=== PATIENT | male | born 1955 | race Caucasian/White ===

== ENCOUNTER 2017-10-02 17:54 | Emergency (ER) | payer OTHER ==
[~2017-10-02] VITALS: Ht 182.9 cm; Wt 90.7 kg
== END 2017-10-02 18:38 | disposition home or self-care (01) ==
LOC: ED 17:54
DX: S61.231A Puncture wound without foreign body of left index finger without damage to nail, initial encounter (principal); Y99.8 Other external cause status; I10 Essential (primary) hypertension; M35.3 Polymyalgia rheumatica; W31.0XXA Contact with mining and earth-drilling machinery, initial encounter
CPT/HCPCS: 99282

== ENCOUNTER 2022-03-04 06:37 | Day surgery (SDC) | payer MEDICARE ==
[~2022-03-04] VITALS: Ht 182.9 cm; Wt 90.9 kg
--- NOTE | ~2022-03-04 | OR ---
[facility] [address], [place] [address] Draft DATE OF OPERATION: 03/04/2022 SURGEON: Jose No MD PREOPERATIVE DIAGNOSES: 1. History of polyps ([place], [place]). 2. Family history of colon cancer (mother). POSTOPERATIVE DIAGNOSES: Polyp of mid transverse colon (excised) and sigmoid and left-sided diverticulosis. PROCEDURE: Total colonoscopy to cecum with cold morcellation polypectomy x1. ANESTHESIA: Intravenous sedation; propofol infusion; Joelle Puente CRNA INDICATIONS: This 67-year-old white man has a history of polyps, having undergone colonoscopy on several occasions in [place], [place]. He has now lived in [place] for about seven years. He has family history of colon cancer in his mother who of the disease in her 70s. The patient is currently asymptomatic. He does take bupropion and fluoxetine on a routine basis. On the base of his overall medical situation, propofol infusional sedation is recommended. The risk of bleeding, infection, and perforation related to colonoscopy was reviewed with him. He understands and wished to proceed. FINDINGS: The prep was good overall. Complete colonoscopy was undertaken of the cecum without question. Full intubation of the cecum was accomplished. There was only one small polyp in the mid transverse colon which was excised with cold morcellation technique. Diverticular changes were noted of the sigmoid and left colon and the rectum was normal. DESCRIPTION OF PROCEDURE: The patient was brought to the surgical endoscopy suite and placed in the lateral decubitus position, given intravenous sedation with propofol infusional technique. Full cardiopulmonary monitoring by the mohel. Digital rectal examination showed normal prostate. The Olympus video colonoscope was passed in the rectum and manipulated throughout the colon noting diverticular changes of the sigmoid and left colon. Scope was ultimately advanced to the cecum. Ileocecal valve and appendiceal orifice were normal. The scope was withdrawn from that point and examination throughout showed no PATIENT NAME: MELLISA PERDUE OPERATIVE REPORT DATE OF : 57 REPORT #: [id number] PHYSICIAN: JOSE NO MD PCP: MICHAEL BUTLER MD REPORT IS CONFIDENTIAL AND NOT TO BE RELEASED WITHOUT AUTHORIZATION [facility] [address], [place] [address] Draft abnormality into the mid transverse colon where an obvious adenomatous appearing polyp was noted, this was excised with cold morcellation technique. The scope was further withdrawn and diverticular changes were seen of the sigmoid and left colon. Retroflexed view of the rectum was normal. Scope was removed and the patient was taken to the recovery room in good condition. CONCLUDING DIAGNOSIS: Single transverse colon polyp (excised) and diverticulosis. PLAN: Recommend high-fiber diet. The pathology report will be checked but almost certainly will be benign. Recommend repeat colonoscopy in 5 years based on family history, sooner if symptoms should occur. He will return to the ongoing care of Dr. Butler. MD FREDDY Stauffer/FRANCESCO /[id number] cc: Michael Butler MD Copies: MICHAEL BUTLER MD ~ PATIENT NAME: MELLISA PERDUE OPERATIVE REPORT DATE OF : 57 REPORT #: [id number] PHYSICIAN: JOSE NO MD PCP: MICHAEL BUTLER MD REPORT IS CONFIDENTIAL AND NOT TO BE RELEASED WITHOUT AUTHORIZATION
[~2022-03-04 06:37] MED LIST: BUPROPION XL150 MG PO; FLOMAX0.4 MG PO; FLUOXETINE HCL60 MG PO; LIPITOR40 MG PO; TELMISARTAN40 MG PO
--- NOTE | 2022-03-05 16:38 | PATH ---
[facility] [address] [place], [place] [address] Signed SPECIMEN(S): A TRANSVERSE COLON POLYP SPECIMEN SOURCE: A. TRANSVERSE COLON POLYP CLINICAL HISTORY: Colonoscopy. History of colon polyps, family history of colon CA. Dx: Polyp/diverticulitis. FINAL PATHOLOGIC DIAGNOSIS: Colon, transverse, polyp, polypectomy: - Fragments of tubular adenoma. - Negative for high-grade dysplasia or malignancy. NAL:cml:C2NR MICROSCOPIC EXAMINATION: Histologic sections of all submitted blocks are examined by light microscopy. These findings, together with the gross examination, support the pathologic diagnosis. GROSS DESCRIPTION: The specimen, labeled "MC, 1," and designated on the requisition "transverse colon polypectomy," is received in formalin and consists of five fragments of pink-henning tissue (0.1-0.3 cm in greatest dimension). The specimen is submitted entirely in cassette (A1). AC (under the direct supervision of a pathologist) The Gross Description was prepared using a voice recognition system. The report was reviewed for accuracy; however, sound-alike word errors, addition and/or deletions may occur. If there is any question about this report, please contact Client Services. PERFORMING LABORATORY: The technical component was performed by [facility], [address] [place] [id number] (CLIA# [id number]). [facility] [address] [address] (CLIA# [id number]). Diagnostician: Ariana Heredia MD Pathologist Electronically Signed 03/05/2022 PATIENT NAME: MELLISA PERDUE PATHOLOGY DATE OF : 57 REPORT #: [id number] PHYSICIAN: [facility] PCP: MICHAEL BROWN MD REPORT IS CONFIDENTIAL AND NOT TO BE RELEASED WITHOUT AUTHORIZATION [address] [address] Signed Copies: ~ PATIENT NAME: MELLISA PERDUE PATHOLOGY DATE OF : 57 REPORT #: [id number] PHYSICIAN: [facility] PCP: MICHAEL BROWN MD REPORT IS CONFIDENTIAL AND NOT TO BE RELEASED WITHOUT AUTHORIZATION
== END 2022-03-04 10:15 | disposition home or self-care (01) ==
LOC: DS 06:37 → OPS 06:37 → DS 12:00
PROVIDERS: ATTEND Surgery
PROC: 0DBL8ZX Excision of Transverse Colon, Via Natural or Artificial Opening Endoscopic, Diagnostic (ICD-10-PCS; principal; 2022-03-04 07:30)
DX: Z12.11 Encounter for screening for malignant neoplasm of colon (principal); K57.30 Diverticulosis of large intestine without perforation or abscess without bleeding; D12.3 Benign neoplasm of transverse colon; Z20.822 Contact with and (suspected) exposure to COVID-19
CPT/HCPCS: J2001; J2704; J7121; U0003

== ENCOUNTER 2025-09-15 08:39 | Day surgery (SDC) | payer MEDICARE, OTHER ==
[~2025-09-15] VITALS: Ht 182.9 cm; Wt 89.0 kg
[~2025-09-15 08:39] MED LIST changes: +CEFAZOLIN SODIUM 2 GM in SODIUM CHLORIDE 0.9% 100 ML IV SCH; +IBLOOD GLUCOSE TEST STRIP 1 EA TEST VI PRN; +LACTATED RINGER'S 1,000 ML IV SCH; +LIDOCAINE HCL 1% 5 ML SDV INJ ONE; +VITAMIN D210 MCG PO; +VITAMIN K240 MCG PO
[2025-09-15 09:02] VITALS: BP 129/85
--- NOTE | 2025-09-15 09:22 | NUR ---
SANJAY AT WILL WAIT AND IS ALARM ADJUSTER.
[2025-09-15] MEDS ORDERED: SODIUM CHLORIDE 0.9% 100 ML IV ONE (09:34)
[2025-09-15] MEDS ORDERED: LIDOCAINE HCL 2% 5 ML SDV ONE (09:56)
[2025-09-15] MEDS ORDERED: ACETAMINOPHEN 1,000 MG/100 ML VIAL ONE (09:56)
[2025-09-15] MEDS ORDERED: fentaNYL citrate 100 MCG/2 ML VIAL ONE (09:56)
[2025-09-15] MEDS ORDERED: KETOROLAC TROMETHAMINE 30 MG/ML VIAL ONE (09:59)
[2025-09-15] MEDS ORDERED: BUPIVACAINE HCL 0.25% 50 ML MDV ONE (10:00)
[2025-09-15] MEDS ORDERED: KETOROLAC TROMETHAMINE 15 MG/ML VIAL IV PRN (10:15)
[2025-09-15] MEDS ORDERED: HYDROCODONE/ACETA 5/325 TAB PO PRN (10:15)
[2025-09-15] MEDS ORDERED: DEXAMETHASONE SOD PHOS 4 MG/ML VIAL ONE (10:29)
[2025-09-15] MEDS ORDERED: NOREPINEPHRINE BITARTRATE 4 MG/4 ML AMP ONE (10:46)
[2025-09-15] MEDS ORDERED: DICLOFENAC SODI75 MG PO (11:07)
[2025-09-15] MEDS ORDERED: HYDROCODON-ACE1 EA10 PO (11:08)
--- NOTE | 2025-09-15 11:25 | NUR ---
09/15/25 1125 Sindy Peng 1104: PT ARRIVED TO PACU VIA STRETCHER. PT ARRIVED ON 6L VIA MASK. PT NON AROUSABLE AT THIS TIME. PT HAS DRESSING TO LEFT KNEE THAT IS C/D/I. GOOD CMS INTACT. REPORT GIVEN THAT THE IV IN THE RIGHT WRIST INFILTRATED DURING SURGERY. WARM PACK PLACED AND LIMB ELEVATED TO AID IN CIRCULATION. 1110: PT ON RA AT THIS TIME. PT AWAKE AND ASKING LOTS OF QUESTIONS REGARDING IS PROCEDURE. 1124: MD AT BEDSIDE AT THIS TIME.
[2025-09-15 11:39] VITALS: BP 122/65
--- NOTE | 2025-09-15 11:49 | NUR ---
RETURNED TO ROOM CALL LIGHT GIVEN. AT BEDSIDE.
[2025-09-15] MEDS ORDERED: SEVOFLURANE 250 ML BTL INH ONE (12:17)
[2025-09-15 12:46] VITALS: BP 136/76
--- NOTE | 2025-09-15 14:41 | NUR ---
1420 AMB TO BR AND VOIDS QS. NOW READY TO GO HOME.
--- NOTE | 2025-09-15 14:42 | NUR ---
ALL DC INSTRUCTIONS REVIEWED AND STATES HE UNDERSTANDS. NO QUESTIONS. R ARM SLIGHTLY RED NO SWELLING. ENC TO KEEP WARM COMPRESS ON AND ELEVATION. TO CALL DR SANCHEZ IF ANY PROBLEMS INCREASED SWELLING REDNESS OR PAINFUL.
[2025-09-15] MEDS ORDERED: DICLOFENAC SOD 75 MG TABEC PO SCH (21:00)
--- NOTE | 2025-09-16 09:25 | OR ---
[facility] [address] [place], [place] [address] Signed DATE OF OPERATION: 09/15/2025 SURGEON: Janene Merchant MD PREOPERATIVE DIAGNOSIS: Lateral meniscus tear, left knee. POSTOPERATIVE DIAGNOSIS: Lateral meniscus tear, left knee. PROCEDURE PERFORMED: Left knee arthroscopy with partial lateral meniscectomy. GOVERNOR ASSEMBLER HYDRAULIC: None. ANESTHESIA: General. BLOOD LOSS: Minimal. BRIEF HISTORY: Mellisa is a 70-year-old male who suffered an injury to his knee and had mechanical symptoms along with pain and swelling. Risks and benefits of operative treatment were discussed with him after the MRI confirmed the lateral meniscus tear. He elected to proceed. Once consent was obtained, he was taken to the operating room. After adequate anesthesia, he was placed on the operating room table. All downside pressure points were well padded. The left leg was prepped and draped in a standard sterile fashion. The standard inferolateral and superolateral portals were injected with 0.25% Marcaine with epinephrine and the incisions were made. The scope was introduced in the knee. ARTHROSCOPIC FINDINGS: The knee showed mild synovitis throughout. The patella was stable, tracked well and had minimal chondromalacia. The medial compartment showed grade 2 changes to the femur, grade 1 to the tibia. The medial meniscus was intact. ACL and PCL were intact. Lateral compartment showed grade 2 to areas of grade 3 chondromalacia on the femur, grade 2 changes on the tibia. The lateral meniscus was torn horizontally from the mid body all the way to the posterior aspect. DESCRIPTION OF OPERATION: Electronically Signed By: JANENE MERCHANT MD 09/16/25 0925 PATIENT NAME: MELLISA PERDUE OPERATIVE REPORT DATE OF : 57 REPORT #: [id number] PHYSICIAN: JANENE MERCHANT MD PCP: MICHAEL BROWN MD REPORT IS CONFIDENTIAL AND NOT TO BE RELEASED WITHOUT AUTHORIZATION [facility] [address] [place], [place] [address] Signed Standard inferomedial portal was established and the straight and curved biters were used to trim the meniscus tear back to a stable rim. This was then smoothed and feathered out using the shaver. All debris was evacuated. Chondral flaps were also debrided. The scope was then withdrawn. Portals were closed with 3-0 nylon and the knee injected with 60 mg of Toradol. The wounds were closed with 3-0 nylon. Dressed with Adaptic, ABD, and Maximiliano wrap. He tolerated the procedure well. All sponge, needle, and instrument counts were correct. Janene Merchant MD BA/LESLYL /[id number] Copies: ~ Electronically Signed By: JANENE MERCHANT MD 09/16/25 0925 PATIENT NAME: MELLISA PERDUE OPERATIVE REPORT DATE OF : 57 REPORT #: [id number] PHYSICIAN: JANENE MERCHANT MD PCP: MICHAEL BROWN MD REPORT IS CONFIDENTIAL AND NOT TO BE RELEASED WITHOUT AUTHORIZATION
== END 2025-09-15 14:25 | disposition home or self-care (01) ==
LOC: DS 08:39
PROVIDERS: ATTEND Specialist
PROC: 0SBD4ZZ Excision of Left Knee Joint, Percutaneous Endoscopic Approach (ICD-10-PCS; principal; 2025-09-15 10:55)
DX: S83.282A Other tear of lateral meniscus, current injury, left knee, initial encounter (principal); X58.XXXA Exposure to other specified factors, initial encounter; M65.88 Other synovitis and tenosynovitis, other site; M94.262 Chondromalacia, left knee; I10 Essential (primary) hypertension; F32.A Depression, unspecified; M35.3 Polymyalgia rheumatica; Z79.899 Other long term (current) drug therapy
CPT/HCPCS: 01400; J0131; J0688; J1100; J1885; J2003; J2405; J2704; J3010; J7121